=== PATIENT | female | born 1980 | race Caucasian/White ===

== ENCOUNTER 2020-12-30 07:40 | Inpatient (IN) ==
[2020-12-30] MEDS ORDERED: OXYTOCIN 30 UNITS/500 ML BAG IV PRN (08:11)
[2020-12-30] MEDS ORDERED: LACTATED RINGER'S 1,000 ML IV PRN (08:11)
[2020-12-30 08:35] LABS: Hematocrit (blood only) 35.5 % (37-47); Mean Corpuscular Hemoglobin 34.3 pg (25-34); Mean Corpuscular Hgb Conc 33.8 g/dL (32-36); Mean Corpuscular Volume 101.4 fL (80-100); Mean Platelet Volume 10.5 fL (7.4-10.4); Platelet Count 245 K/uL (130-400); RDW Coefficient of Variation 13.3 % (11.5-14.5); RDW Standard Deviation 48.8 fL (36.4-46.3); White Blood Count 7.95 K/uL (4.8-10.8)
--- NOTE | 2020-12-30 09:17 | History & Physical Report ---
Date of Service December 30, 2020 Assessment & Plan (1) Advanced maternal age during in third trimester: Plan: Will start with Cytotec vaginal insert for cervical ripening Admission and Anticipated Discharge Date Admission Date: December 30, 2020 History of Present Illness Chief Complaint: Induction of labor for AMA at 40 weeks Primary Care Provider: Amanda Watt'Brien 40 F [id number] at 40 weeks for IOL for AMA. GBS is negative. Covid is negative. O negative blood type. course has been unremarkable. Allergies Allergy/AdvReac Type Severity Reaction Status Date / Time No Known Allergies Allergy Unverified 12/30/20 09:12 Home Medications Medication Instructions Recorded Confirmed Type aspirin 81 mg chewable tablet 81 mg PO DAILY 12/30/20 12/30/20 History prenat.vits,billy,[id number] 1 tab PO DAILY 12/30/20 12/30/20 History Past Med/Surg History Medical History (spontaneous vaginal delivery) Social History Smoking Status: Never smoker Hx Alcohol Use: No Hx Substance Use: No Preferred Language: Samoan Beliefs That Will Affect Care: None marital status: Current Living Situation: Family Other Information That Helps Us Care for You: No Feels Safe at Home: Yes Safety Concerns: Feels Safe At This Time Assistive Devices: None Review of Systems Review of Systems: All systems reviewed & are unremarkable except as noted in HPI & below Physical Exam Constitutional: WD/WN, vitals as above comfortable Eyes: PERRL, conjunctivae normal, anicteric sclerae Respiratory: normal respiratory effort, lungs clear to auscultation Cardiovascular: RRR, no murmur, no edema Skin: no rashes, warm and dry Neurologic: patellar DTR's 2+ bilat, sensation intact Psychiatric: A+Ox3, euthymic affect Genitourinary: no vaginal lesions, no adnexal mass normal external appearance OB Exam Abdomen: + fundal height, + heart tones, + vertex and + estimated weight (7.5 lbs) Manual OB Exam: + cervical dilation fingertip, + cervical effacement 50% and + station high OB Exam Monitor Tracing: + external FHT monitor used, + external uterine monitor used, + category I and + normal FHT variability Results & Data Results & Data ([facility]) Vital Signs (Past 12 Hours) Vital Signs Temp Pulse Resp BP 12/30/20 07:52 36.7 C 85 20 111/75 12/30/20 07:51 85 111/75 Laboratory Results 12/30/20 12/30/20 12/30/20 08:21 08:36 08:36 WBC 7.95 RBC 3.50 L Hgb 12.0 Hct 35.5 L MCV 101.4 H MCH 34.3 H MCHC 33.8 RDW Std Deviation 48.8 H RDW Coeff of Amrit 13.3 Plt Count 245 MPV 10.5 H COVID-19 [facility] SARS-CoV-2, RNA, NAAT NEGATIVE
[2020-12-30] MEDS ORDERED: MoRPHine SULFATE PF 1 MG/ML 10 ML AMP/VIAL ONE (09:52)
--- NOTE | 2020-12-30 09:55 | Labor Progress Brief Note ---
Date of Service December 30, 2020 Assessment & Plan Admission and Anticipated Discharge Date Admission Date: December 30, 2020 Physical Exam Genitourinary: Patient bleeding with clots after exam Speculum exam with large 2 cm clots and active bleeding Cat 2 FHT Patient gives similar history of bleeding not stopping after cervical exam in office Will do primary . Consents obtained Results & Data ([facility]) Vital Signs (Past 12 Hours) Vital Signs Temp Pulse Resp BP 12/30/20 07:52 36.7 C 85 20 111/75 12/30/20 07:51 85 111/75
[2020-12-30] MEDS ORDERED: LACTATED RINGER'S 1,000 ML IV SCH ×2 (10:00→11:35)
[2020-12-30] MEDS ORDERED: CITRIC ACID/SODIUM CITRATE 15 ML UDC ONE (10:03)
--- NOTE | 2020-12-30 10:10 | Anesthesiology Consultation ---
Date of Service December 30, 2020 Assessment & Plan Chart Review Chart Review: Acceptable Risk for Surgery Consults Requested none History Surgery Operation Date: 12/30/20 10:00 Proposed Procedures p Section in LD(Bilateral) - Almas Patricia MD Height/Weight Height: 5 ft 9 in Weight: 80.286 kg Allergies Allergy/AdvReac Type Severity Reaction Status Date / Time No Known Allergies Allergy Unverified 12/30/20 09:12 Medications Home Medications Medication Instructions Recorded Confirmed Last Taken aspirin 81 mg chewable tablet 81 mg PO DAILY 12/30/20 12/30/20 Unknown prenat.vits,billy,cbo-wdse-ikwri 1 tab PO DAILY 12/30/20 12/30/20 Unknown Past Medical History Medical History (spontaneous vaginal delivery) Social History Smoking Status: Never smoker Hx Alcohol Use: No Hx Substance Use: No substance use type: does not use Physical Exam Vital Signs Last Vital Signs Temp 36.7 C 12/30/20 07:52 Pulse 85 12/30/20 07:52 Resp 20 12/30/20 07:52 BP 111/75 12/30/20 07:52 Testing Laboratory Results 12/30/20 08:21
[2020-12-30] MEDS ORDERED: fentaNYL citrate 100 MCG/2 ML VIAL ONE ×2 (10:26→10:33)
[2020-12-30] MEDS ORDERED: PROPOFOL IV EMULSION 10 MG/ML 20 ML VIAL IV ONE (10:28)
[2020-12-30] MEDS ORDERED: SUCCINYLCHOLINE 100MG/5ML SYR IV ONE (10:28)
[2020-12-30] MEDS ORDERED: OXYTOCIN 10 UNITS/ML VIAL ONE ×2 (10:28→10:48)
[2020-12-30] MEDS ORDERED: ONDANSETRON INJ 2 MG/ML 2 ML VIAL ONE (10:29)
[2020-12-30 11:12] LABS: Base Excess Cord Arterial Bld 0.9 mEq/L (-9-1.8); CO2 Cord Arterial Blood 60 mmHg (39.1-73.5); HCO3 Cord Arterial Blood 29 mmol/L (19.7-28.5); PO2 Cord Arterial Blood 19 mmHg (4.1-31.7); pH Cord Arterial Blood 7.29 (7.1-7.38)
[2020-12-30 11:20] LABS: Oxygen Sat Cord Arterial Blood < 60.0 % (<60)
[2020-12-30] MEDS ORDERED: ACETAMINOPHEN 1,000 MG/100 ML VIAL IV STA (11:20)
[2020-12-30] MEDS ORDERED: METOCLOPRAMIDE HCL INJ 5 MG/ML 2 ML VIAL IV PRN (11:20)
[2020-12-30] MEDS ORDERED: ePHEDrine sulfate 50 MG/ML AMP IV PRN (11:20)
[2020-12-30] MEDS ORDERED: PROMETHAZINE HCL 12.5 MG in SODIUM CHLORIDE 0.9% 50 ML IV PRN (11:20)
[2020-12-30] MEDS ORDERED: HYDROmorphone INJ 2 MG/ML SYR/VIAL IV PRN (11:20)
[2020-12-30] MEDS ORDERED: ONDANSETRON INJ 2 MG/ML 2 ML VIAL IV PRN ×2 (11:20→11:35)
[2020-12-30] MEDS ORDERED: ATROPINE SULFATE 0.1 MG/ML 10ML SYR IV PRN (11:20)
[2020-12-30] MEDS ORDERED: KETOROLAC 30 MG/ML VIAL IV PRN ×2 (11:20→11:35)
[2020-12-30] MEDS ORDERED: fentaNYL citrate 100 MCG/2 ML VIAL IV PRN (11:20)
[2020-12-30] MEDS ORDERED: MoRPHine SULFATE 10 MG/ML CARP/VIAL IV PRN (11:20)
[2020-12-30 11:22] LABS: Base Excess Cord Venous Blood -2.1 mEq/L (-7.7-1.9); Cord Venous Blood HCO3 24 mmol/L (18.4-26.8); Cord Venous Blood PCO2 45 mmHg (30.4-57.2); Cord Venous Blood PO2 32 mmHg (14.1-43.3); Cord Venous Blood pH 7.34 (7.20-7.44); O2 Saturation Cord Venous Bld 65.1 % (<68)
[2020-12-30] MEDS ORDERED: MoRPHine SULFATE 2 MG/ML CARP IV PRN (11:33)
[2020-12-30] MEDS ORDERED: diphenhydrAMINE Capsule 25 MG CAP PO PRN (11:35)
[2020-12-30] MEDS ORDERED: SENNA 8.6 MG TAB PO PRN (11:35)
[2020-12-30] MEDS ORDERED: diphenhydrAMINE 50 MG/ML VIAL IV PRN (11:35)
[2020-12-30] MEDS ORDERED: DIPHTHERIA/TETANUS/PERTUSSIS 0.5 ML SYR/VIAL IM ONE (11:35)
[2020-12-30] MEDS ORDERED: MEPERIDINE HCL 50 MG/ML CARP IV PRN (11:35)
[2020-12-30] MEDS ORDERED: MAGNESIUM HYDROXIDE SUSP 30 ML UDC PO PRN (11:35)
[2020-12-30] MEDS ORDERED: PROMETHAZINE HCL 25 MG in SODIUM CHLORIDE 0.9% 50 ML IV PRN (11:35)
[2020-12-30] MEDS ORDERED: HYDROCORTISONE ACETATE 25 MG SUPP PR PRN (11:35)
[2020-12-30] MEDS ORDERED: SUPERCREAM 0.870% 15 GM JAR EXT PRN (11:35)
[2020-12-30] MEDS ORDERED: BENZOCAINE 20% AER SPR 82.5 GM CAN EXT PRN (11:35)
[2020-12-30] MEDS ORDERED: ACETAMINOPHEN 1000 MG/100 ML IV IV PRN (11:35)
--- NOTE | 2020-12-30 11:39 | Operative Report ---
Post Operative Report Pre & Post Diagnosis Operation Date: 12/30/20 10:00 Pre-Op Diagnosis: 1. Non-reassuring tones 2. Bleeding Post-Op Diagnosis: Same I identified the patient and participated in the time-out.: Yes Procedure Operation Date: 12/30/20 10:00 Actual Procedures p Section in LD(Bilateral) - Almas Patricia MD Surgeon Almas Patricia MD Moth Proofer Dr Duenas Estimated Blood Loss 600 Findings Consistent with Post-Op Diagnosis live female with nuchal cord x1 with thick meconium noted was an anterior placenta with an accessory lobe completely covering the cervical os with complete previa Fluids 1000 ML Specimens cord blood placenta Drains anderson Anesthesia Type General Complications none Description of Procedure Current Active Problems Problem Status Onset Advanced maternal age during in third trimester Premature rupture of membranes I attest to the content of the Intraoperative Record and any orders documented therein. Any exceptions are noted below.
[2020-12-30] MEDS ORDERED: miSOPROStoL 25 MCG TAB PV SCH (12:00)
--- NOTE | 2020-12-30 12:25 | Operative Report (OR) ---
DATE OF OPERATION: 12/30/2020. PREOPERATIVE DIAGNOSES: Nonreassuring heart tones with vaginal bleeding. POSTOPERATIVE DIAGNOSES: Nonreassuring heart tones with vaginal bleeding plus placenta with ac cessory lobe completely covering the os consistent with a complete placenta previa. SURGEON: Almas Patricia MD. DEVELOPMENTAL TRAINING COUNSELOR: Dr. Jhoana Duenas. ANESTHESIA: General. CLINICAL HISTORY: The patient is a 40-year-old female, para 1-0-1-1 at 40 weeks, admitted for induct ion of labor due to advanced maternal age. Upon presentation to the labor and delivery, the patient had a cervical exam and shortly thereafter, she started developing heavy vaginal bleeding. She has a history of a LEEP. The patient stated that her ultrasound in the office was normal. Due to the fac t that she had a LEEP, a speculum exam was performed and this revealed large clots and bleeding. Due to the patient's monitor strip being category 2 remote from delivery, a primary section was done for possible vasa previa. The patient was consented and advised that this would be done under g eneral due to the imminent nature of the heart tones. DESCRIPTION OF PROCEDURE: Under satisfactory general anesthesia, the patient was prepped prior to th e start of general anesthesia with a timeout call prior to the patient being asleep. Pfannenstiel inc ision was made using the scalpel to enter into the abdominal cavity and with blunt dissection and 2 f ingers muscles were . Entry into the abdominal cavity was accomplished without difficulty. Bladder blade was inserted over the lower uterine segment and a high incision was made after the ref lection of the bladder was sharply dissected down with Metzenbaum scissors. A low segment transverse incision was made. The incision was then widened in the AP diameter. Thick meconium fluid was note d. was then delivered with the aid of fundal pressure. There was a nuchal cord x1 reduced at time of delivery. After the cord was clamped and cut baby was handed to beef selector where Apgars w ere 8 and 9. weight was 7 pounds 14 ounces. There was noted to be meconium staining of both t he baby and the cord. Loop of cord was then obtained for full cord gases. Placenta and accessory lobe were submitted to pathology. The uterus was then exteriorized. Ring forceps were then placed on gilles th angles in the inferior margin. The uterus was then closed in a double layer using 0 Vicryl suture in a continuous interlocking fashion followed by a second imbricating suture. Tubes, ovaries bilate rally were found to be within normal limits. The contents of the abdominal and pelvic cavity were th en irrigated. No active bleeding was noted. The initial sponge, needle, and instrument counts were found to be correct. The uterus was placed back into the normal anatomical position. Lower uterine segment was firm without any evidence of bleeding. Fascia was then reapproximated from both ends usi ng 0 Vicryl suture in a continuous fashion. Subcuticular layer was irrigated, bleeders were cauteriz ed. Subcuticular layer closed with 3-0 plain suture. This layer was then irrigated once again and t he skin was then closed with 4-0 Monocryl. Telfa and a sponge dressing applied. Final sponge, needl e and instrument counts were found to be correct. TOTAL FLUIDS: 1000 mL. EBL: 600 mL. TOTAL URINE: 50 mL. Please note that the attendance of Dr. Duenas was necessary due to the nature of the procedure and re traction, exposure, and suctioning required during the procedure. Job ID: [id number]
[2020-12-30] MEDS ORDERED: NALOXONE HCL 0.4 MG/1 ML VIAL/CARP IV PRN (13:16)
[2020-12-30] MEDS ORDERED: SODIUM CHLORIDE 0.9% 1000ML 1,000 ML IV SCH (13:30)
[2020-12-30] MEDS: MORPHINE SULFATE IV PRN (14:15)
--- NOTE | 2020-12-30 15:06 | Anesthesiology Progress Note ---
Date of Service December 30, 2020 Anesthesia Post Procedure Vital Signs Vital Signs: Temp Pulse Resp BP Pulse Ox 12/30/20 14:54 70 113/67 12/30/20 14:53 72 98 12/30/20 14:48 69 97 12/30/20 14:44 71 112/62 12/30/20 14:43 67 97 12/30/20 14:38 77 97 12/30/20 14:35 72 116/57 L 12/30/20 14:33 77 97 12/30/20 14:28 67 97 12/30/20 14:24 70 112/68 12/30/20 14:23 71 98 12/30/20 14:18 71 98 12/30/20 14:14 65 108/65 12/30/20 14:13 66 97 12/30/20 14:08 69 98 12/30/20 14:04 71 118/72 12/30/20 14:03 72 98 12/30/20 13:58 65 98 12/30/20 13:54 71 110/67 12/30/20 13:53 64 98 12/30/20 13:48 63 98 12/30/20 13:44 72 110/63 12/30/20 13:43 70 99 12/30/20 13:38 63 99 12/30/20 13:34 72 109/61 12/30/20 13:33 62 100 12/30/20 13:28 64 100 12/30/20 13:24 73 128/64 12/30/20 13:23 60 99 12/30/20 13:18 64 99 12/30/20 13:14 69 117/66 12/30/20 13:13 75 99 12/30/20 13:08 74 99 12/30/20 13:04 63 121/65 12/30/20 13:03 71 100 12/30/20 12:58 68 99 12/30/20 12:54 62 125/62 12/30/20 12:53 71 100 12/30/20 12:48 62 100 12/30/20 12:44 63 114/72 12/30/20 12:43 75 100 12/30/20 12:38 71 107/71 98 12/30/20 12:33 75 100 12/30/20 12:28 61 99 12/30/20 12:24 67 117/72 12/30/20 12:23 66 99 12/30/20 12:18 68 98 12/30/20 12:14 67 16 112/64 12/30/20 12:13 65 99 12/30/20 12:10 18 12/30/20 12:08 70 100 12/30/20 12:04 69 126/74 12/30/20 12:03 63 98 12/30/20 11:58 63 100 12/30/20 11:54 73 117/70 12/30/20 11:53 73 100 12/30/20 11:50 18 12/30/20 11:48 69 100 12/30/20 11:44 75 118/74 12/30/20 11:43 73 100 12/30/20 11:40 20 12/30/20 11:38 69 100 12/30/20 11:34 74 115/72 12/30/20 11:33 77 100 12/30/20 11:30 20 12/30/20 11:28 75 100 12/30/20 11:24 82 116/74 12/30/20 11:23 78 99 12/30/20 11:20 20 12/30/20 11:18 81 99 12/30/20 11:14 83 109/69 12/30/20 11:13 86 99 12/30/20 11:10 36.4 C L 20 12/30/20 07:52 36.7 C 85 20 111/75 12/30/20 07:51 85 111/75 Pain Intensity Bilateral Lower Abdomen: Pain Intensity: 8 Transfer of Care Handoff Completed per policy Notes Mental Status: alert / awake / arousable and participated in evaluation Patient Amnestic to Procedure: Yes Nausea / Vomiting: adequately controlled Pain: adequately controlled Airway Patency, RR, SpO2: stable & adequate BP & HR: stable & adequate Hydration State: stable & adequate Anesthetic Complications: no major complications apparent
[2020-12-30] MEDS: SIMETHICONE 80 MG CHEW PO SCH ×2 (16:33→21:48)
[2020-12-30] MEDS: OXYTOCIN 30 UNITS in LACTATED RINGER'S 1,000 ML IV SCH (19:00)
[2020-12-30] MEDS: DOCUSATE SODIUM 100 MG CAP PO SCH (21:48)
[2020-12-31] MEDS: OXYTOCIN 30 UNITS in LACTATED RINGER'S 1,000 ML IV SCH (03:12)
[2020-12-31] MEDS: MORPHINE SULFATE IV PRN (04:50)
[2020-12-31] MEDS ORDERED: ceFAZolin 2000MG 2,000 MG/15 ML SYR IV SCH (06:00)
[2020-12-31] MEDS ORDERED: CITRIC ACID/SODIUM CITRATE 15 ML UDC PO SCH (06:00)
[2020-12-31 07:41] LABS: Basophils # (auto) 0.02 K/uL (0-0.2); Basophils % (auto) 0.2 %; Eosinophils % (auto) 1.2 %; Hematocrit (blood only) 31.2 % (37-47); Hemoglobin 10.4 g/dL (12.0-16.0); Immature Granulocytes # (auto) 0.01 K/uL (0.00-0.02); Immature Granulocytes % (auto) 0.1 %; Lymphocytes % (auto) 11.1 %; Mean Corpuscular Hemoglobin 34.1 pg (25-34); Mean Corpuscular Hgb Conc 33.3 g/dL (32-36); Mean Corpuscular Volume 102.3 fL (80-100); Mean Platelet Volume 10.3 fL (7.4-10.4); Monocytes % (auto) 6.2 %; Neutrophils # (auto) 6.56 K/uL (1.4-6.5); Neutrophils % (auto) 81.2 %; Platelet Count 204 K/uL (130-400); RDW Coefficient of Variation 13.3 % (11.5-14.5); RDW Standard Deviation 49.7 fL (36.4-46.3); Red Blood Count 3.05 M/uL (4.2-5.4); White Blood Count 8.09 K/uL (4.8-10.8)
[2020-12-31] MEDS ORDERED: KETOROLAC 30 MG/ML VIAL IV ONE (07:53)
[2020-12-31] MEDS: SIMETHICONE 80 MG CHEW PO SCH ×4 (07:55→21:12)
--- NOTE | 2020-12-31 07:59 | Obstetrical Progress Note ---
Date of Service December 31, 2020 Assessment & Plan Admission and Anticipated Discharge Date Admission Date: December 30, 2020 Subjective Postop check Patient is seen and examined Feels well, no complaints Pain is under control with meds No CP/ SOB/ Dizziness/ N&V/ VB/ Leg pain Not OOB yet Tolerating clears and crackers No flatus yet Bottle feeding her baby girl, she is doing well Vital Signs Temp Pulse Resp BP Pulse Ox 12/31/20 03:28 36.6 C 69 16 116/75 97 12/30/20 22:51 36.7 C 73 16 117/73 97 Lab Results 12/30/20 12/30/20 12/30/20 Range/Units 08:21 08:21 08:36 WBC 7.95 (4.8-10.8) K/uL RBC 3.50 L (4.2-5.4) M/uL Hgb 12.0 (12.0-16.0) g/dL Hct 35.5 L (37-47) % MCV 101.4 H (80-100) fL MCH 34.3 H (25-34) pg MCHC 33.8 (32-36) g/dL RDW Std Deviation 48.8 H (36.4-46.3) fL RDW Coeff of Amrit 13.3 (11.5-14.5) % Plt Count 245 (130-400) K/uL MPV 10.5 H (7.4-10.4) fL Immature Gran % (Auto) % Neut % (Auto) % Lymph % (Auto) % Rowan % (Auto) % Eos % (Auto) % Baso % (Auto) % Neut # (Auto) (1.4-6.5) K/uL Lymph # (Auto) (1.2-3.4) K/uL Rowan # (Auto) (0.11-0.59) K/uL Eos # (Auto) (0-0.5) K/uL Baso # (Auto) (0-0.2) K/uL Immature Gran # (Auto) (0.00-0.02) K/uL Cord ABG pH (7.1-7.38) Cord ABG pCO2 (39.1-73.5) mmHg Cord ABG pO2 (4.1-31.7) mmHg Cord ABG HCO3 (19.7-28.5) mmol/L Cord ABG Base Excess (-9-1.8) mEq/L Cord ABG O2 Sat (<60) % Cord VBG pH (7.20-7.44) Cord VBG pCO2 (30.4-57.2) mmHg Cord VBG pO2 (14.1-43.3) mmHg Cord VBG HCO3 (18.4-26.8) mmol/L Cord VBG Base Excess (-7.7-1.9) mEq/L Cord VBG O2 Sat (<68) % Barometric Pressure mm/Hg Blood Gas Comments COVID-19 Eval [facility] SARS-CoV-2, RNA, NAAT (NEGATIVE) Blood Type O Negative Antibody Screen NEGATIVE 12/30/20 12/30/20 12/30/20 Range/Units 08:36 10:28 10:28 WBC (4.8-10.8) K/uL RBC (4.2-5.4) M/uL Hgb (12.0-16.0) g/dL Hct (37-47) % MCV (80-100) fL MCH (25-34) pg MCHC (32-36) g/dL RDW Std Deviation (36.4-46.3) fL RDW Coeff of Amrit (11.5-14.5) % Plt Count (130-400) K/uL MPV (7.4-10.4) fL Immature Gran % (Auto) % Neut % (Auto) % Lymph % (Auto) % Rowan % (Auto) % Eos % (Auto) % Baso % (Auto) % Neut # (Auto) (1.4-6.5) K/uL Lymph # (Auto) (1.2-3.4) K/uL Rowan # (Auto) (0.11-0.59) K/uL Eos # (Auto) (0-0.5) K/uL Baso # (Auto) (0-0.2) K/uL Immature Gran # (Auto) (0.00-0.02) K/uL Cord ABG pH 7.29 (7.1-7.38) Cord ABG pCO2 60 (39.1-73.5) mmHg Cord ABG pO2 19 (4.1-31.7) mmHg Cord ABG HCO3 29 H (19.7-28.5) mmol/L Cord ABG Base Excess 0.9 (-9-1.8) mEq/L Cord ABG O2 Sat < 60.0 (<60) % Cord VBG pH 7.34 (7.20-7.44) Cord VBG pCO2 45 (30.4-57.2) mmHg Cord VBG pO2 32 (14.1-43.3) mmHg Cord VBG HCO3 24 (18.4-26.8) mmol/L Cord VBG Base Excess -2.1 (-7.7-1.9) mEq/L Cord VBG O2 Sat 65.1 (<68) % Barometric Pressure 736.9 736.9 mm/Hg Blood Gas Comments MARTINEZ MARTINEZ COVID-19 Eval Order SARS-CoV-2, RNA, NAAT NEGATIVE (NEGATIVE) Blood Type Antibody Screen 12/31/20 Range/Units 07:00 WBC 8.09 (4.8-10.8) K/uL RBC 3.05 L (4.2-5.4) M/uL Hgb 10.4 L (12.0-16.0) g/dL Hct 31.2 L (37-47) % MCV 102.3 H (80-100) fL MCH 34.1 H (25-34) pg MCHC 33.3 (32-36) g/dL RDW Std Deviation 49.7 H (36.4-46.3) fL RDW Coeff of Amrit 13.3 (11.5-14.5) % Plt Count 204 (130-400) K/uL MPV 10.3 (7.4-10.4) fL Immature Gran % (Auto) 0.1 % Neut % (Auto) 81.2 % Lymph % (Auto) 11.1 % Rowan % (Auto) 6.2 % Eos % (Auto) 1.2 % Baso % (Auto) 0.2 % Neut # (Auto) 6.56 H (1.4-6.5) K/uL Lymph # (Auto) 0.90 L (1.2-3.4) K/uL Rowan # (Auto) 0.50 (0.11-0.59) K/uL Eos # (Auto) 0.10 (0-0.5) K/uL Baso # (Auto) 0.02 (0-0.2) K/uL Immature Gran # (Auto) 0.01 (0.00-0.02) K/uL Cord ABG pH (7.1-7.38) Cord ABG pCO2 (39.1-73.5) mmHg Cord ABG pO2 (4.1-31.7) mmHg Cord ABG HCO3 (19.7-28.5) mmol/L Cord ABG Base Excess (-9-1.8) mEq/L Cord ABG O2 Sat (<60) % Cord VBG pH (7.20-7.44) Cord VBG pCO2 (30.4-57.2) mmHg Cord VBG pO2 (14.1-43.3) mmHg Cord VBG HCO3 (18.4-26.8) mmol/L Cord VBG Base Excess (-7.7-1.9) mEq/L Cord VBG O2 Sat (<68) % Barometric Pressure mm/Hg Blood Gas Comments COVID-19 Eval Order SARS-CoV-2, RNA, NAAT (NEGATIVE) Blood Type Antibody Screen PE: General: Alert, orientedx3, NAD CVS: S1S2 RRR Lungs: CTAB Abd: soft, NT, ND, BS+, Incision/ dressing C/D/I Lochia minimal Ext: NT, no edema, SCD's on AP: 40 yo female s/p Emergency Csection , pod#1 VSS Afebrile doing well Continue to routine postop care Encourage PO intake, may ambulate D/C anderson Remove dressing after 24 hours from surgery Results & Data ([facility]) Vital Signs (Past 12 Hours) Vital Signs Temp Pulse Resp BP Pulse Ox 12/31/20 03:28 36.6 C 69 16 116/75 97 12/30/20 22:51 36.7 C 73 16 117/73 97
[2020-12-31] MEDS ORDERED: NON-FORMULARY MEDICATION (Prenat.Vits,Cal,Min-Iron-Folic Tablet) PO SCH (09:00)
[2020-12-31] MEDS: FERROUS SULFATE 325 MG TAB PO SCH (09:09)
[2020-12-31] MEDS: PRENATAL VITAMIN 1 TAB PO SCH (09:09)
[2020-12-31] MEDS: DOCUSATE SODIUM 100 MG CAP PO SCH ×2 (09:09→21:12)
[2020-12-31] MEDS ORDERED: Nursing to Pharmacy Communication SCH (10:45)
[2020-12-31] MEDS: oxyCODONE/ACETAMINOPHEN 5mg/325mg TAB PO PRN ×4 (10:55→23:43)
[2020-12-31] MEDS ORDERED: COUGH DROP (SUGAR FREE) LOZ 24 LOZ/1 BOX BUCCAL ONE (11:00)
[2020-12-31] MEDS: IBUPROFEN 600 MG TAB PO PRN ×3 (13:13→21:12)
--- NOTE | 2020-12-31 17:15 | Obstetrical Progress Note ---
Date of Service December 31, 2020 Assessment & Plan Admission and Anticipated Discharge Date Admission Date: December 30, 2020 Subjective I was asked to see Ms. Mcleod for right upper quadrant and middle abdominal pain earlier. She ambulated and ate lunch with no nausea vomiting. Pain started about an hour ago. She has not passed gas yet. Vital signs stable afebrile Abdomen soft nondistended, good bowel sounds, appropriately tender around incision, mild tenderness on right upper quadrant with deep breathing. With Dr. Mcintyre who was her surgeon and he stated her surgery was straightforward. She took Percocet and Motrin and ambulated again and she feels better now. Most likely a gas, GI related pain. Will encourage p.o. intake, ambulation and milk of magnesia for bowel movement. Continue to monitor closely. Results & Data ([facility]) Vital Signs (Past 12 Hours) Vital Signs Temp Pulse Resp BP Pulse Ox 12/31/20 12:15 37.0 C 71 18 108/61 12/31/20 08:15 37.0 C 77 16 118/73 98
[2020-12-31] MEDS ORDERED: bisacodyL 5 MG TABEC PO SCH (20:00)
[2021-01-01] MEDS: IBUPROFEN 600 MG TAB PO PRN ×2 (01:47→08:19)
[2021-01-01] MEDS: oxyCODONE/ACETAMINOPHEN 5mg/325mg TAB PO PRN ×2 (05:35→08:19)
[2021-01-01 06:28] LABS: Hematocrit (blood only) 33.7 % (37-47); Hemoglobin 10.8 g/dL (12.0-16.0)
[2021-01-01] MEDS: FERROUS SULFATE 325 MG TAB PO SCH (08:18)
[2021-01-01] MEDS: PRENATAL VITAMIN 1 TAB PO SCH (08:18)
[2021-01-01] MEDS: SIMETHICONE 80 MG CHEW PO SCH (08:18)
[2021-01-01] MEDS: DOCUSATE SODIUM 100 MG CAP PO SCH (08:19)
--- NOTE | 2021-01-01 09:53 | Obstetrical Progress Note ---
Date of Service January 01, 2021 Assessment & Plan (1) Placenta previa antepartum in third trimester: discharged Subjective Ambulation: ambulating normally Voiding: no voiding problems Passing Gas:: Yes Diet Tolerance:: regular diet Feeding Type:: bottle feeding Current Pain Level(1-10): 0 doing well ploans for discharge Physical Exam Constitutional WD/WN, vitals as above well developed and comfortable Gastrointestinal (Abdomen) Inspection/Auscultation: abdomen normal to inspection, normal bowel sounds and + abdominal surgical incision Results & Data ([facility]) Vital Signs (Past 12 Hours) Vital Signs Temp Pulse Pulse Resp BP BP Pulse Ox 01/01/21 09:47 36.8 C 73 68 18 123/77 104/68 98 01/01/21 08:00 36.8 C 73 18 123/77 12/31/20 23:40 36.7 C 63 18 113/70 Laboratory Results Laboratory Results - last 72 hr 12/30/20 12/30/20 12/30/20 08:21 08:21 08:36 WBC 7.95 RBC 3.50 L Hgb 12.0 Hct 35.5 L MCV 101.4 H MCH 34.3 H MCHC 33.8 RDW Std Deviation 48.8 H RDW Coeff of Amrit 13.3 Plt Count 245 MPV 10.5 H Immature Gran % (Auto) Neut % (Auto) Lymph % (Auto) Runnels % (Auto) Eos % (Auto) Baso % (Auto) Neut # (Auto) Lymph # (Auto) Runnels # (Auto) Eos # (Auto) Baso # (Auto) Immature Gran # (Auto) Cord ABG pH Cord ABG pCO2 Cord ABG pO2 Cord ABG HCO3 Cord ABG Base Excess Cord ABG O2 Sat Cord VBG pH Cord VBG pCO2 Cord VBG pO2 Cord VBG HCO3 Cord VBG Base Excess Cord VBG O2 Sat Barometric Pressure Blood Gas Comments COVID-19 Eval [email or web address] SARS-CoV-2, RNA, NAAT Blood Type O Negative Antibody Screen NEGATIVE 12/30/20 12/30/20 12/30/20 08:36 10:28 10:28 WBC RBC Hgb Hct MCV MCH MCHC RDW Std Deviation RDW Coeff of Amrit Plt Count MPV Immature Gran % (Auto) Neut % (Auto) Lymph % (Auto) Runnels % (Auto) Eos % (Auto) Baso % (Auto) Neut # (Auto) Lymph # (Auto) Runnels # (Auto) Eos # (Auto) Baso # (Auto) Immature Gran # (Auto) Cord ABG pH 7.29 Cord ABG pCO2 60 Cord ABG pO2 19 Cord ABG HCO3 29 H Cord ABG Base Excess 0.9 Cord ABG O2 Sat < 60.0 Cord VBG pH 7.34 Cord VBG pCO2 45 Cord VBG pO2 32 Cord VBG HCO3 24 Cord VBG Base Excess -2.1 Cord VBG O2 Sat 65.1 Barometric Pressure 736.9 736.9 Blood Gas Comments MARTINEZ MARTINEZ COVID-19 Eval Order SARS-CoV-2, RNA, NAAT NEGATIVE Blood Type Antibody Screen 12/31/20 01/01/21 07:00 05:49 WBC 8.09 RBC 3.05 L Hgb 10.4 L 10.8 L Hct 31.2 L 33.7 L MCV 102.3 H MCH 34.1 H MCHC 33.3 RDW Std Deviation 49.7 H RDW Coeff of Amrit 13.3 Plt Count 204 MPV 10.3 Immature Gran % (Auto) 0.1 Neut % (Auto) 81.2 Lymph % (Auto) 11.1 Runnels % (Auto) 6.2 Eos % (Auto) 1.2 Baso % (Auto) 0.2 Neut # (Auto) 6.56 H Lymph # (Auto) 0.90 L Runnels # (Auto) 0.50 Eos # (Auto) 0.10 Baso # (Auto) 0.02 Immature Gran # (Auto) 0.01 Cord ABG pH Cord ABG pCO2 Cord ABG pO2 Cord ABG HCO3 Cord ABG Base Excess Cord ABG O2 Sat Cord VBG pH Cord VBG pCO2 Cord VBG pO2 Cord VBG HCO3 Cord VBG Base Excess Cord VBG O2 Sat Barometric Pressure Blood Gas Comments COVID-19 Eval Order SARS-CoV-2, RNA, NAAT Blood Type Antibody Screen
[2021-01-01] MEDS ORDERED: bisacodyL 10 MG SUPP PR PRN (11:28)
--- NOTE | 2021-01-04 10:36 | Discharge Summary (DS) ---
HOSPITAL COURSE AND REASON FOR ADMISSION: The patient is a 40-year-old female, para 1-0-0-1, who was admitted at 40 weeks for induction of labor for advanced maternal age. The patient had an uncomplica caridad vaginal delivery in 2014, had an uncomplicated course currently. She presents to labor a nd delivery for induction. Cervix was checked, she was found to be closed. During the exam, she was fingertip, 50%, and vertex was high. Monitor revealed category 1 with normal heart tone varia bility. Shortly thereafter, the patient went to the bathroom and was experiencing brisk bright red v aginal bleeding. A speculum exam was done since the patient had a LEEP to determine if there was any thing unusual with her cervix. It was normal and the patient continued to have bleeding. The heart tones became worse to a category 2 strip and decision was made to perform a stat secti on under general anesthesia for fear that this may have represented a vasa previa. The patient neida nued to have bleeding despite poor strip and she was brought down to the operating room for a stat ce sarean section under general anesthesia. Consents were obtained. The patient was informed of the ri sks and benefits of the procedure. section was done under general anesthesia, which was unc omplicated. The patient delivered subsequently without difficulty. There was thick meconium and nuc marlin cord x1 and the baby had meconium staining. Evidence of complete previa with an accessory lobe o f the placenta was noted at the time of the surgery. Hospital course was uncomplicated and unremarka ble. The patient was discharged home on 01/01/2021 on postoperative day #2 in stable condition. Regu lar diet was given on discharge. Homegoing instructions were given. Follow up in 1 week for incisio n check. MEDICATIONS: Include Motrin and Percocet for pain. Job ID: [id number]
== END 2021-01-01 11:30 | disposition home or self-care (01) | DRG 788 ==
LOC: 4S1 07:40 → 4S2 15:39